=== PATIENT | male | born 1960 | race Caucasian/White ===

== ENCOUNTER → 2018-03-24 | Outpatient (CLI) | payer BC ==
[~2018-03-24] VITALS: Ht 177.8 cm; Wt 98.9 kg
[~2018-03-24] MED LIST: ALLEGRA ALLERG180 MG PO; BAYER CHEWABLE81 MG PO; CELEBREX 200 M200 M1 PO; DYMISTA NASAL S23 GM NASAL; FLOMAX0.4 MG PO; GABAPENTIN 100100 MG PO; HYDROCODON-ACE1 EAC7 PO; LIORESAL 10 MG10 MG PO; MELATONIN5 M1 PO; NORCO 5-325 TA1 EACH PO; POTASSIUM99 MG PO; PRAVACHOL20 MG PO; PROTONIX40 M4 PO; TRAMADOL 50 MG50 MG PO; TRAZODONE HCL50 MG PO; VITAMIN D1000 UNI1 PO
--- NOTE | ~2018-03-24 | H ---
[facility] [place] [address] [place] [address] HISTORY AND PHYSICAL Name: MARCE ORTEGA [facility] [id number] Admission: 03/24/18 Attend Phys: Roel Singer MD Discharge: Date of : 64 Report #: [id number] THIS REPORT FOR: //name// CC: [facility] physician/PCP Jason Singer DATE OF SERVICE: 03/24/2018 CHIEF COMPLAINT: Chronic low back pain with radiculopathy. 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 He has chronic back pain. His pain, however, does not keep him from playing golf up to sometimes 6 days a week. At the end of the day his back hurts. He has recently had an MRI showing tight spinal stenosis at L4-L5 as well as a lesser degree at L5-S1. The combination of facet arthropathy, thickening of the ligamentum flavum and bulging of disks at those levels creating these narrowings. Dr. Rizzo has suggested that surgery may be in his future. A 2-level laminectomy would possibly result in a fusion as well. He is here today for his treatment options. He has seen Dr. Desir at the pain clinic at [facility]. Epidural injections have not provided a lot of relief, but he recently underwent a 2-level transforaminal epidural injection at L5-S1 that he says provided improvement for several months. That last injection was performed in 06/2017. I cared for the patient's many years ago. She was in the pain clinic before receiving a lumbar fusion and has done well with a single level L4-L5 fusion. Her view on surgery is that it has potential in providing relief for her . We discussed the pros and cons of lumbar decompression with fusion today as well as conservative management including intermittent epidural injections and the use of medication. He has used opioid medication with some success at low dose. Hydrocodone works effectively in easing pain. He typically takes the hydrocodone before golf and sometimes after. He rarely uses more than 2 tablets a day. He also has used tramadol in the same fashion. He denies any significant side effects. He is at low risk for addiction. An opioid risk tool has been completed at today's visit. Score is low. His MME max is 10 MME. He describes his current pain as 2 years in the making, pain across his low back, pain typically in one or the other buttock, most recently has stayed primarily in the left. He has a tightness and cramps that occur in his calves often at night. If he is asad he can get his to massage the cramps which [facility] [address] [place] [address] HISTORY AND PHYSICAL Name: MARCE ORTEGA Room #: REG CLLisa Salamanca#: [id number] Admission: 03/24/18 Attend Phys: Roel Singer MD Discharge: Date of : 64 Report #: [id number] helps. He has some nerve pain radiating into the right great toe. In addition to medication, regular exercise on the golf course, and medication, he has been using for 5 minutes twice a day a new inversion table and doing daily stretching. Pain intensity is described somewhere between a 5 and a 7/10. He feels that the inversion table has helped. MEDICATIONS: Potassium, cholecalciferol, Protonix, aspirin, melatonin, trazodone, tramadol, Dymista, Diane, Lioresal, Pravachol, Flomax, Celebrex, [place] when he has it available and Neurontin 100 mg t.i.d. ALLERGIES: None. PAST MEDICAL HISTORY: Significant for elevated cholesterol, gastroesophageal reflux disease, and arthritis. SOCIAL HISTORY: Denies use of tobacco, drinks alcohol in a social setting. He exercises weekly. He is . PHYSICAL EXAMINATION: GENERAL: Pleasant 58-year-old. VITAL SIGNS: Blood pressure 116/84, heart rate 76, respirations 16. BMI is 31.3. NEUROLOGIC: Moves from sitting to standing position and ambulates with a steady gait. Range of motion of the lumbar spine is excellent in flexion, extension and rotational movements. There is some flattening of the lordotic curve and limited motion, flexion and extension of the spine. There is mild tenderness across the lumbosacral segment including the sacroiliac joints, but this is not significant. Straight leg raising is negative in the sitting position for radiculopathy. Sensation is intact. No focal weakness is noted. Deep tendon reflexes are trace at the knees, absent at the ankles. MRI scan is reviewed. I did not have the films to review, but clearly it appears that the biggest problem is the significant stenosis at L4-L5 and slightly lesser problem at L5-S1. The stenosis at L5-S1 is 0.7 cm, the stenosis at L4-L5 is 0.5. RECOMMENDATION: 1. I can repeat transforaminal epidural injections at L5-S1 if he would like me to do so or he can return to Dr. Desir at [facility]. 2. I provided him with some hydrocodone, particularly for his upcoming trip and some tramadol. 60 tablets of each. we had a long discussion today about the opioids in treatment of chronic intractable pain. I think they play a role. I have referred him to my website blog, which may help answer some questions that he had about my philosophy and the use of opioids for treatment of chronic [facility] [address] [place] [address] HISTORY AND PHYSICAL Name: MARCE ORTEGA Room #: REG [facility]..#: [id number] Admission: 03/24/18 Attend Phys: Roel Singer MD Discharge: Date of : 64 Report #: [id number] intractable pain. Surgery may be in his cards down the line, but that will be determined later. I have seen many patients in our practice with fairly tight spinal stenosis being able to manage effectively without surgery. I think there is also some hope in the future that we will continue to expand upon less invasive procedures than laminectomy and fusion. MILD and Vertiflex are two of the current treatments that have been used for Stenosis with mixed results. I suspect we will continue to see advancements in this area in the future. Followup visit is planned for 2-level transforaminal epidural injection. I if think we can provide him with extended relief in the range of months, this would be a useful tool going forward to buy some time. How much is difficult to say. By: [id number] Roel Singer MD /nt
[2018-03-24 13:08] VITALS: BP 116/84
== END ==
LOC: PAIN 07:16
DX: M54.16 Radiculopathy, lumbar region (principal); G89.4 Chronic pain syndrome; Z79.899 Other long term (current) drug therapy

== ENCOUNTER → 2018-06-05 | Outpatient (CLI) | payer BC ==
[~2018-06-05] VITALS: Ht 177.8 cm; Wt 100.7 kg
[2018-06-05 12:48] VITALS: BP 116/94
--- NOTE | 2018-06-05 12:50 | NUR ---
Pain Clinic Assessment: 1. History of Osteoarthritis: Left Lower Extremity Right Lower Extremity L4-L5 S1 B/L KNEES History of Rheumatoid Arthritis: Not Applicable 2. Height: 5 ft. 10 in. 177.8 cm. Weight: 222.0 lb. oz. 100.699 kg. Patient's BMI: 31.9 3. Vital Signs: BP: 116/94 Pulse: 77 Resp: 16 Temp: 02 Sat: 99 ECG Mon: 4. Pain Intensity: 2 5. Fall Risk: Dizziness: N Needs help standing or walking: N Fallen in the last 3 months: N Fall risk comments: 6. Patient on Blood Thinner: None 7. History of Hypertension: N 8. Opioid Therapy greater than 6 weeks: Y Opiate Contract Signed: 9. Risk Assessment Tool Provided: 10. Functional Assessment Tool: 11. Recreational Drug Use: Never Drug Type: Tobacco Use: Never Smoker Tobacco Type: Amount or Packs/day: How Many Years: Alcohol Use: Yes Frequency: Quant:
--- NOTE | 2018-06-06 07:28 | HPC ---
[facility] [address] [address] [place] [address] PAIN MANAGEMENT CONSULTATION Name: JORDANMARCE ASTUDILLONE Room #: REG [facility] Cheikh#: [id number] Admission: 06/05/18 Attend Phys: Brook Galaviz Discharge: Date of : 64 Report #: [id number] THIS REPORT FOR: //name// CC: Brook Galaviz [facility] physician/PCP DATE OF SERVICE: 06/05/2018 CHIEF COMPLAINT: Low back pain with radiculopathy. HISTORY OF PRESENT ILLNESS: This is a pleasant 58-year-old gentleman who has a longstanding history of chronic back pain. He does complain of occasional leg pain, but today it is central low back pain. He tells me it is worse with activity, worse in the morning or before bedtime and playing golf. He does use his medication, he stretches and he uses an inversion table. He complains of a pain of 2/10, mostly a stiff soreness in his back. He tells me that he has also since our last visit started taking some baclofen and he takes gabapentin 100 mg at bedtime. These seem to both be very beneficial in helping with his pain in his lower back. He would like a refill of his tramadol today. He tells me that he has not been golfing very much, so therefore, he does not need to take the hydrocodone. He has only taken a couple of pills since Dr. Singer prescribed them in March for him. He thinks that he may be needing them more again once the weather is good and he is able to play golf again. ALLERGIES: No known drug allergies. CURRENT list of Baclofen 10 mg up to 3 times a day as needed, pravastatin 20 mg daily, Flomax 0.4 mg daily, Celebrex 200 mg daily, hydrocodone 5/325 as needed, gabapentin 100 mg daily, tramadol 50 mg twice a day, potassium daily, vitamin D daily, Protonix 40 mg daily, aspirin 81 mg daily, melatonin 5 mg at bedtime, trazodone 50 mg daily and Diane as needed. PQRS: 1. He has a history of lower extremity osteoarthritis and lower back. He denies any rheumatoid arthritis. 2. Height is 5 feet 10 inches, weight is 220, BMI is 31.9. 3. Vital signs: Blood pressure 116/94, pulse of 77, respirations 16, oxygen sat is 99. 4. Pain scores 2/10. 5. Fall risk. He denies dizziness. Does not need help walking or standing. Has not fallen in the last 3 months. 5. The patient is not on any blood thinners and does not take antihypertensive medicines. 6. He has history of opioid use greater than 6 weeks, therefore, he will sign an opioid contract today. 7. His risk assessment tool is low and his functional assessment is 27/70. [address] [address] PAIN MANAGEMENT CONSULTATION Name: MARCE ORTEGA [facility] [id number] Admission: 06/05/18 Attend Phys: Brook Galaviz Discharge: Date of : 64 Report #: [id number] 8. Recreational drug use he denies. He is not a smoker and occasionally drinks alcohol. We did check the prescription monitoring system. The patient is fairly appropriately for his medications from Dr. Roel Singer. He tells me he does safeguard his medications and keeps them with him when he travels. PHYSICAL EXAMINATION: GENERAL: This is a well-developed, well-nourished 58-year-old male that appears his stated age. He is alert and orientated. His affect is appropriate. HEENT: Normocephalic, atraumatic. Extraocular eye muscles are intact. Mucous membranes are moist. Hearing is adequate. NECK: Without JVD or adenopathy. MUSCULOSKELETAL: He moves from sitting to standing position and ambulates with a steady gait. Some mild tenderness across his lumbosacral segment including his SI joints. He does not complain of any radiculopathy today. Lower extremity muscle strength is judged to be 5/5 in all major muscle groups. IMPRESSION: 1. Chronic low back pain. 2. Lumbar radiculopathy. 3. Complex medical management under terms of written opioid agreement. We reviewed the fact that opiate medications are being used to provide analgesia adequate to support activities of daily living, not attempting to achieve a specific pain score on the 0-10 Visual Analog Scale. The current opiate medications are providing sufficient analgesia to allow the patient to participate in activities of daily living. The patient is not exhibiting any aberrant behavior suggestive of drug diversion. The patient is not having any adverse reactions to medications. The patient is not suffering from daytime somnolence or mental acuity changes. The patient is managing opiate-induced constipation with appropriate peqk-qez-oznofby agents and dietary considerations. The patient was counseled on concern for caution with operating a motor vehicle while using opiate medications. A physical exam was performed and the patient's functional status was evaluated. All patients with back pain were advised against the bed rest greater than 4 days and were advised to return to normal activities. Pain score assessment was noted and the treatment plan was reviewed with the patient. All current medications, both prescribed and OTC were reviewed and reconciled on the electronic medical record. Tobacco screening was accomplished and smoking cessation was advised when indicated. BMI was noted and diet/exercise modification was recommended for all patients following outside normal parameters. I reviewed with the patient today their responsibilities to safeguard prescription medications, reviewed their responsibility to utilize medications only as prescribed by the physician. They are to seek and receive pain [facility] [address] [place] [address] PAIN MANAGEMENT CONSULTATION Name: MARCE ORTEGA Room #: REG [facility] Yuly.Nic.#: [id number] Admission: 06/05/18 Attend Phys: Brook Galaviz Discharge: Date of : 64 Report #: [id number] medications only from 1 physician group ( [facility]). They are to use 1 pharmacy and keep the clinic informed if they change pharmacies. Their responsibilities include making followup visits in a timely fashion and to avoid abrupt discontinuation of medication usage. Their responsibilities further include bringing their medications (bottles from the pharmacy with residual pills) to the visit for possible confirmation of pill counts and the patient understands it is their responsibility to submit to random drug screens to ensure both that the medications prescribed are present, and that no other controlled substances are present. All prescriptions provided today were generated electronically. PLAN: 1. We discussed treatment options with the patient today. He would like a refill of his tramadol. He feels it has been very helpful taking 2 pills a day, 1 in the morning and 1 at night as instructed by Dr. Singer. He tells me that he has rarely been using hydrocodone since he has not been golfing this winter. The patient is requesting a 3-month mail off prescription for his tramadol. I told him at this time we have only seen him one time and I am not comfortable yet writing for a 3-month supply of medications, also I am not sure that [facility] will allow this medicine to be mailed. He is going to check with them because he is unsure. It is not common practice nowadays that 3 months of narcotic or nonnarcotic medications are mailed under an opioid crisis that we are having. The patient will check with [facility] and let us know for his next visit. Today tramadol 50 mg #60 with one additional refill were given. The patient verbalizes understanding. 2. The patient read and signed an opioid agreement today stating he understands the crack down on medications and that he will only get his narcotic prescriptions from us. According to the CDC guidelines, he is at 5-10 MMEs per day, which is very low under the CDC guidelines. Once we have established rapport with this patient, we will give him a 3-month supply of his medication to be filled locally. 3. The patient will be seen in 2 months' time prior to another cruise that he will be taking, he will call for an appointment prior to that time and we will see if he has been taking his hydrocodone more often and may need a refill of that prescription at that time too. The patient seen in collaboration today with Dr. Roel Singer. <ELECTRONICALLY SIGNED> By: Brook Galaviz 06/06/18 0728 [id number] Brook Galaviz /nt
== END ==
LOC: PAIN 07:14
DX: M54.16 Radiculopathy, lumbar region (principal); G89.29 Other chronic pain; Z79.891 Long term (current) use of opiate analgesic; Z79.899 Other long term (current) drug therapy

== ENCOUNTER → 2018-07-31 | Outpatient (CLI) | payer BC ==
[~2018-07-31] VITALS: Ht 177.8 cm; Wt 99.4 kg
[2018-07-31 09:33] VITALS: BP 125/88
--- NOTE | 2018-07-31 09:38 | NUR ---
Pain Clinic Assessment: 1. History of Osteoarthritis: Left Lower Extremity Right Lower Extremity L4-L5 S1 B/L KNEES History of Rheumatoid Arthritis: Not Applicable 2. Height: 5 ft. 10 in. 177.8 cm. Weight: 219.2 lb. oz. 99.429 kg. Patient's BMI: 31.5 3. Vital Signs: BP: 125/88 Pulse: 80 Resp: 18 Temp: 02 Sat: 97 ECG Mon: 4. Pain Intensity: 0 5. Fall Risk: Dizziness: N Needs help standing or walking: N Fallen in the last 3 months: N Fall risk comments: 6. Patient on Blood Thinner: None 7. History of Hypertension: N 8. Opioid Therapy greater than 6 weeks: Y Opiate Contract Signed: 06/05/18 9. Risk Assessment Tool Provided: 10. Functional Assessment Tool: 11. Recreational Drug Use: Never Drug Type: Tobacco Use: Never Smoker Tobacco Type: Amount or Packs/day: How Many Years: Alcohol Use: Yes Frequency: Quant:
--- NOTE | 2018-08-01 07:52 | HPC ---
[facility] [place] [place] [address] PAIN MANAGEMENT CONSULTATION Name: MARCE ORTEGA [facility] [id number] Admission: 07/31/18 ������������������ Attend Phys: Brook Galaviz Discharge: ������������������ Date of : 64 Report #: [id number] THIS REPORT FOR: //name// CC: Brook Galaviz [facility] physician/PCP DATE OF SERVICE: 07/31/2018 CHIEF COMPLAINT: Low back pain with radiculopathy. HISTORY OF PRESENT ILLNESS: This is a very pleasant 58-year-old gentleman who returns to the pain clinic today for refill of his medications for his chronic low back pain. He tells me that his pain score is 0 today. He takes tramadol twice a day and his Celebrex daily and this reduces his pain to the 0 score. He tells me that he did have to go off his Celebrex for a few days and he did notice an increase in his pain, especially in his knees when he was not taking that medication. He tells me he has not really started playing golf yet because of the bad winter. He thinks about another month he will start playing that, which usually increases his pain across his lower back. He does take the hydrocodone for that on a p.r.n. basis. The patient tells me that he is using the elliptical 4-5 times a week, trying to be as active as possible. He denies any constipation. He tells me he is getting ready to go on a cruise and he knows that he will safeguard his medicines and keep them with him when he is traveling. The patient would like a refill of his tramadol today, called into his [facility]. ALLERGIES: No known drug allergies. CURRENT LIST OF MEDICATIONS: Tramadol 50 mg b.i.d., hydrocodone 5/325 p.r.n., potassium daily, vitamin D 1000 units daily, Protonix 40 mg daily, aspirin 81 mg daily, melatonin 5-10 mg at bedtime, trazodone 50 mg daily, Diane 180 mg daily, baclofen 10 mg t.i.d. p.r.n., Pravachol 20 mg daily, Flomax 0.4 mg daily, Celebrex 200 mg daily, Neurontin 100 mg at bedtime. PQRS: 1. He has a history of lower extremity osteoarthritis in his lower back. He denies any rheumatoid arthritis. 2. Height is 5 feet 10 inches, weight 219, BMI is 31. 3. VITAL SIGNS: Blood pressure 125/88, pulse is 80, respirations 18, oxygen sat is 97. Pain score is 0. 4. Fall risk: He denies any dizziness. Does not need help walking or standing, has not fallen in the last 3 months. 5. The patient is not on any blood thinners and does take medicine for hypertension. 6. Opioid therapy is greater than 6 weeks, therefore, an opiates signed contract is on the chart. [address] [address] PAIN MANAGEMENT CONSULTATION Name: MARCE ORTEGA SIA Room #: REG LUIS Salamanca#: [id number] Admission: 07/31/18 ������������������ Attend Phys: Brook Galaviz Discharge: ������������������ Date of : 64 Report #: [id number] 7. Risk assessment tool is low. His functional assessment is 27/70. 8. Recreational drug use, he denies. He is not a smoker and occasionally he drinks alcohol. PHYSICAL EXAMINATION: GENERAL: This is a well-developed, well-nourished, well-hydrated 58-year-old gentleman who appears his stated age. Placing his pain score today as 0/10. HEENT: Normocephalic, atraumatic. Extraocular eye muscles are intact. Mucous membranes are moist. NECK: Without JVD or adenopathy. MUSCULOSKELETAL: The patient moves from sitting to standing without any difficulty. He ambulates with a normal steady gait. Does not complain of any radicular pains today. Lower extremity strength judged to be 5/5 in all major muscle groups. ASSESSMENT: 1. Chronic low back pain. 2. Lumbar radiculopathy. 3. Complex medical management, in terms of written opioid agreement. We reviewed the fact that opiate medications are being used to provide analgesia adequate to support activities of daily living, not attempting to achieve a specific pain score on the 0-10 Visual Analog Scale. The current opiate medications are providing sufficient analgesia to allow the patient to participate in activities of daily living. The patient is not exhibiting any aberrant behavior suggestive of drug diversion. The patient is not having any adverse reactions to medications. The patient is not suffering from daytime somnolence or mental acuity changes. The patient is managing opiate-induced constipation with appropriate rzus-ajl-abfloam agents and dietary considerations. The patient was counseled on concern for caution with operating a motor vehicle while using opiate medications. A physical exam was performed and the patient's functional status was evaluated. All patients with back pain were advised against the bed rest greater than 4 days and were advised to return to normal activities. Pain score assessment was noted and the treatment plan was reviewed with the patient. All current medications, both prescribed and OTC were reviewed and reconciled on the electronic medical record. Tobacco screening was accomplished and smoking cessation was advised when indicated. BMI was noted and diet/exercise modification was recommended for all patients following outside normal parameters. I reviewed with the patient today their responsibilities to safeguard prescription medications, reviewed their responsibility to utilize medications only as prescribed by the physician. They are to seek and receive pain medications only from 1 physician group ( [facility]). They are to use [address] [address] PAIN MANAGEMENT CONSULTATION Name: MARCE ORTEGA Room #: REG LUIS Salamanca#: [id number] Admission: 07/31/18 ������������������ Attend Phys: Brook Galaviz Discharge: ������������������ Date of : 64 Report #: [id number] pharmacy and keep the clinic informed if they change pharmacies. Their responsibilities include making followup visits in a timely fashion and to avoid abrupt discontinuation of medication usage. Their responsibilities further include bringing their medications (bottles from the pharmacy with residual pills) to the visit for possible confirmation of pill counts and the patient understands it is their responsibility to submit to random drug screens to ensure both that the medications prescribed are present, and that no other controlled substances are present. All prescriptions provided today were generated electronically. PLAN: 1. We discussed treatment options with the patient today, the patient would like a refill of his tramadol. We did check the [employer], prescription monitoring system. The patient is filling appropriately with his medications from Dr. Singer and no other physicians. He does tell me he safeguards his medicine and keeps them locked up at home as well as when he travels. The tramadol he takes 2 times a day and would like a refill of this. We are able to do a 90-day, 3-month mail in prescription through [facility] for him, so we will call that medicine in today, for #180 with no additional refills. 2. The patient tells me that he does take his hydrocodone very sparingly. He still has medications left from his March prescription. We will give him a prescription today of hydrocodone 5/325, #60 that he will use sparingly over the next few months for when he has increased activity, especially when he plays golf. 3. The patient tells me he does take Celebrex and gabapentin that he also finds very helpful from his primary doctor, Dr. Puente. 4. The patient will make an appointment in 3 months' time. The patient seen today in collaboration with Dr. Roel Singer. ��������������������������������������������� <ELECTRONICALLY SIGNED> ���������������������������������������� By: Brook Galaviz ��������������������������������������������� 08/01/18 0752 [id number] Brook Galaviz /nt
== END ==
LOC: PAIN 06:43
DX: M54.16 Radiculopathy, lumbar region (principal); G89.29 Other chronic pain; Z79.899 Other long term (current) drug therapy

== ENCOUNTER → 2018-09-29 | Outpatient (CLI) | payer BC ==
[~2018-09-29] VITALS: Ht 177.8 cm; Wt 98.4 kg
[2018-09-29 09:49] VITALS: BP 122/88
--- NOTE | 2018-09-29 10:04 | NUR ---
Pain Clinic Assessment: 1. History of Osteoarthritis: Left Lower Extremity Right Lower Extremity L4-L5 S1 B/L KNEES History of Rheumatoid Arthritis: Not Applicable 2. Height: 5 ft. 10 in. 177.8 cm. Weight: 217.0 lb. oz. 98.431 kg. Patient's BMI: 31.1 3. Vital Signs: BP: 122/88 Pulse: 79 Resp: 16 Temp: 02 Sat: 98 ECG Mon: 4. Pain Intensity: 2 5. Fall Risk: Dizziness: N Needs help standing or walking: N Fallen in the last 3 months: N Fall risk comments: 6. Patient on Blood Thinner: None 7. History of Hypertension: N 8. Opioid Therapy greater than 6 weeks: Y Opiate Contract Signed: 06/05/18 9. Risk Assessment Tool Provided: 0-LOW RISK 10. Functional Assessment Tool: 11. Recreational Drug Use: Never Drug Type: Tobacco Use: Never Smoker Tobacco Type: Amount or Packs/day: How Many Years: Alcohol Use: Yes Frequency: Quant:
--- NOTE | 2018-09-30 08:39 | HPC ---
[facility] [place] [place] [address] PAIN MANAGEMENT CONSULTATION Name: MARCE ORTEGA Room #: REG [facility] Cheikh#: [id number] Admission: 09/29/18 ������������������ Attend Phys: Brook Galaviz Discharge: ������������������ Date of : 64 Report #: [id number] THIS REPORT FOR: //name// CC: Brook Galaviz [facility] physician/PCP DATE OF SERVICE: 09/29/2018 CHIEF COMPLAINT: Low back pain with radiculopathy. HISTORY OF PRESENT ILLNESS: This is a very pleasant gentleman of 58 years old, who returns to the Pain Clinic today for refill of his medications for his chronic ongoing low back pain. He tells me that his pain score is a 2/10 today, mostly a sore, stiffness, achy feeling, worse with activity, but his medications and stretching are helpful. He denies any problems with constipation. He tells me that he feels like he is doing better since he had lost some weight since last fall. He feels like he is stable with his tramadol dose and occasional hydrocodone before he golfs. The patient tells me he did see Dr. Rizzo a while ago and then did see another neurosurgeon through the [facility] system, Dr. Mejia for a second opinion that his primary care doctor had sent him to, feels like both the doctors believe that he does not need surgery at this time and to prolong it if he is able. The patient thinks that he is doing quite well with the current regimen and is going to try and hold off if he can. He tells me he is going to [place] in 2 weeks. He is wanting a refill of his hydrocodone prior to that just in case his back does flare when he is there. He is not needing any tramadol at this time. ALLERGIES: No known drug allergies. CURRENT LIST OF MEDICATIONS: Tramadol 50 mg b.i.d., hydrocodone 5/325 p.r.n., potassium, vitamin D, Protonix 40 mg daily, aspirin, melatonin, trazodone 50 mg at night, baclofen 10 mg p.r.n., pravastatin 20 mg daily, Flomax 0.4 at bedtime, Celebrex 200 mg daily and gabapentin 100 mg at bedtime. PQRS: 1. The patient has a history of lower extremity osteoarthritis and also in his lower back. He denies any rheumatoid arthritis. 2. Height is 5 feet 10 inches, weight is 217, BMI is 31. Vital signs 122/88, pulse 79, respirations 16, oxygen sat is 98. 3. Pain score is 2/10. 4. Fall risk. Denies dizziness. Does not need help walking or standing, has not fallen in the last 3 months. 5. The patient is not on any blood thinners and does [place] [address] PAIN MANAGEMENT CONSULTATION Name: MARCE ORTEGA Room #: REG [facility] Salamanca#: [id number] Admission: 09/29/18 ������������������ Attend Phys: Brook Galaviz Discharge: ������������������ Date of : 64 Report #: [id number] 6. Opiate therapy is greater than 6 weeks. Therefore, an opioid signed contract is on the chart. His risk assessment tool is low. His functional assessment is 27/70. 7. Recreational drug use, he denies. He is not a smoker and occasionally, he does drink alcohol. We did check the prescription monitoring system. The patient is filling appropriately for his medication and is not due for his tramadol today, just needing hydrocodone. PHYSICAL EXAMINATION: GENERAL: This is a well-developed, well-nourished, well-hydrated 58-year-old gentleman, who appears his stated age, placing his pain score today at 2/10. HEENT: Normocephalic, atraumatic. Extraocular eye muscles are intact. Mucous membranes are moist. NECK: Without JVD or adenopathy. EXTREMITIES: Moves from sitting to standing without difficulty. He has a normal steady gait. He has pain across his lower lumbar region with no radicular symptoms today. The patient's lower extremity strength judged to be 5/5 in all major muscle groups. ASSESSMENT: 1. Chronic low back pain. 2. Lumbar radiculopathy, though not an issue today. 3. Complex medical management under terms of written opioid agreement. We reviewed the fact that opiate medications are being used to provide analgesia adequate to support activities of daily living, not attempting to achieve a specific pain score on the 0-10 Visual Analog Scale. The current opiate medications are providing sufficient analgesia to allow the patient to participate in activities of daily living. The patient is not exhibiting any aberrant behavior suggestive of drug diversion. The patient is not having any adverse reactions to medications. The patient is not suffering from daytime somnolence or mental acuity changes. The patient is managing opiate-induced constipation with appropriate [id number] agents and dietary considerations. The patient was counseled on concern for caution with operating a motor vehicle while using opiate medications. A physical exam was performed and the patient's functional status was evaluated. All patients with back pain were advised against the bed rest greater than 4 days and were advised to return to normal activities. Pain score assessment was noted and the treatment plan was reviewed with the patient. All current medications, both prescribed and OTC were reviewed and reconciled on the electronic medical record. Tobacco screening was accomplished and smoking cessation was advised when indicated. BMI was noted and diet/exercise modification was recommended for all patients following outside normal [facility] [address] [place] [address] PAIN MANAGEMENT CONSULTATION Name: MARCE ORTEGA Room #: REG [facility]..#: [id number] Admission: 09/29/18 ������������������ Attend Phys: Brook Galaviz Discharge: ������������������ Date of : 64 Report #: [id number] parameters. I reviewed with the patient today their responsibilities to safeguard prescription medications, reviewed their responsibility to utilize medications only as prescribed by the physician. They are to seek and receive pain medications only from 1 physician group ( [facility]). They are to use 1 pharmacy and keep the clinic informed if they change pharmacies. Their responsibilities include making followup visits in a timely fashion and to avoid abrupt discontinuation of medication usage. Their responsibilities further include bringing their medications (bottles from the pharmacy with residual pills) to the visit for possible confirmation of pill counts and the patient understands it is their responsibility to submit to random drug screens to ensure both that the medications prescribed are present, and that no other controlled substances are present. All prescriptions provided today were generated electronically. PLAN: 1. We discussed treatment options with the patient today. The patient is needing a refill of his hydrocodone, which he takes very sparingly for his increased pain 5/325, #60 given with no additional refills. 2. The patient does not need any tramadol today. He still has one month left of his 3-month supply plus another refill. He is not needing that prescription and will make an appointment again in 3 months for medication refills. 3. The patient tells me he is taking Neurontin 100 mg at bedtime. He thinks it is beneficial, but unsure. I told him that he could always try to stop it because he is at a very low dose of 100 at night. If he has symptoms in his leg that does return, then he would restart the medications. The patient is agreeable with that and he said right now, he will keep as he is with his current medication regimen, but he may try that over the next few months. 4. The patient is getting ready to go to [place]. We did talk about safeguarding his medications, keeping them with him at all times on the plane, keeping them locked up when he is not in his hotel room. 5. Dr. Roel Singer did see the patient and collaborated care as well. ��������������������������������������������� <ELECTRONICALLY SIGNED> ���������������������������������������� By: Brook Galaviz ��������������������������������������������� 09/30/18 0839 1101 1911 Brook Galaviz /sandra
== END ==
LOC: PAIN 06:42
DX: G89.29 Other chronic pain (principal); M47.26 Other spondylosis with radiculopathy, lumbar region; Z79.899 Other long term (current) drug therapy; Z79.891 Long term (current) use of opiate analgesic

== ENCOUNTER → 2018-11-03 | Outpatient (CLI) | payer BC ==
[~2018-11-03] VITALS: Ht 177.8 cm; Wt 99.2 kg
[2018-11-03 09:54] VITALS: BP 108/87
--- NOTE | 2018-11-03 10:07 | NUR ---
Pain Clinic Assessment: 1. History of Osteoarthritis: Left Lower Extremity Right Lower Extremity L4-L5 S1 B/L KNEES History of Rheumatoid Arthritis: Not Applicable 2. Height: 5 ft. 10 in. 177.8 cm. Weight: 218.6 lb. oz. 99.156 kg. Patient's BMI: 31.4 3. Vital Signs: BP: 108/87 Pulse: 92 Resp: 14 Temp: 02 Sat: 97 ECG Mon: 4. Pain Intensity: 4 5. Fall Risk: Dizziness: N Needs help standing or walking: N Fallen in the last 3 months: N Fall risk comments: 6. Patient on Blood Thinner: None 7. History of Hypertension: N 8. Opioid Therapy greater than 6 weeks: Y Opiate Contract Signed: 06/05/18 9. Risk Assessment Tool Provided: 0-LOW RISK 10. Functional Assessment Tool: 11. Recreational Drug Use: Never Drug Type: Tobacco Use: Never Smoker Tobacco Type: Amount or Packs/day: How Many Years: Alcohol Use: Yes Frequency: Quant:
--- NOTE | 2018-11-11 17:25 | HPC ---
[facility] [place] [address] [place] [address] PAIN MANAGEMENT CONSULTATION Name: MARCE ORTEGA [id number] Admission: 11/03/18 ������������������ Attend Phys: Roel Singer MD Discharge: ������������������ Date of : 64 Report #: [id number] THIS REPORT FOR: //name// CC: Darling Singer DATE OF SERVICE: 11/03/2018 Followup visit for low back pain radiating down the posterior aspect of both legs. The patient returns to pain clinic today in followup to discuss his ongoing pain. I saw him actually as a second opinion to Dr. Desir in the past. At the request of his primary care physician, he has now seen another sandblaster paint sprayer, Dr. Jasson Pelletier at [facility]. He is here to discuss Dr. Pelletier's assessment and recommendations. He now has seen myself, Dr. Desir and Dr. Pelletier. Dr. Pelletier suggested facet treatments with medial branch nerve blocks followed by radiofrequency. I reviewed his condition today. He complains mostly of low back, but there is some radiating stiffness and soreness in the legs. This is often worse at night. When he awakens at night, he has cramping sensation in his legs. He is able to be fairly active and enjoys playing golf, but notices that after golf or during the walking that he has some claudication like symptoms. He remains fit and active and athletic. He played hockey as a youth and into his adulthood. He does a stretching regimen consistent with his athletic history. MEDICATIONS: Include hydrocodone 5/325, tramadol 50 mg p.r.n.; he takes no more than 1-2 of each of these medicines per day and finds them effective. Trazodone 50 mg at bedtime, baclofen a rare use for spasm or muscle cramps, Celebrex 200 mg daily, gabapentin 100 mg at bedtime, tamsulosin, fexofenadine, Dymista nasal spray, melatonin, aspirin, pantoprazole, cholecalciferol, potassium. ALLERGIES: None. PHYSICAL EXAMINATION: He is a very fit, stocky appearing gentleman who is 5 feet 10 inches, 218 pounds with a BMI of 31.4. He is muscular throughout. His blood pressure is 108/87, heart rate 92, respirations 14, O2 sat 97. He moves from sitting to standing position, ambulates with a stable broad-based gait. He has good muscle mass throughout the upper and lower extremities with no [address] [address] PAIN MANAGEMENT CONSULTATION Name: MARCE ORTEGA Room #: REG LUIS Salamanca#: [id number] Admission: 11/03/18 ������������������ Attend Phys: Roel Singer MD Discharge: ������������������ Date of : 64 Report #: [id number] tenderness. He has minimal discomfort across the low back. He has some pain with forward flexion and extension, rotational movements, but this is all mild. He has some pain that radiates into his left and right lower extremity down the L4-L5 distribution. He has pretty good movement of his spine in flexion, extension, rotation, and qnrd-gp-fgoz tilt without significant exacerbation to suggest that he has a significant amount of facet arthropathy. I reviewed his MRI from 01/21/2018. It shows that there is degenerative loss of disk height at L3-L4. The most notable finding; however, is moderate to severe degenerative loss of disk height and bulging into the canal at that level with thecal sac measured at 0.5 cm AP. He has a similar change at L5-S1 with the thecal sac at 0.7 cm AP. IMPRESSION: 1. Spinal stenosis with low back pain and some radiation consistent with radiculopathy. 2. Very mild symptoms suggestive of lumbar spondylosis and arthritis pain of the spine. PLAN: I do not think he is a great candidate for radiofrequency ablation given the fact that I think his pain generator is mostly the spinal stenotic segments of L4-L5 and L5-S1. Radiofrequency will not affect these. He may be a candidate for decompression procedure and we once again reviewed those that we did in his prior visit in March. We talked about exercise maybe an epidural steroid injection once again to see if we can provide relief using that approach. Multiple questions were asked and answered. CONSULTATION TIME: Qbcl-ek-mzxo 25-30 minutes. ��������������������������������������������� <ELECTRONICALLY SIGNED> ���������������������������������������� By: Roel Singer MD ��������������������������������������������� 11/11/18 1725 1558 51 Roel Singer MD /nt
== END ==
LOC: PAIN 06:45
DX: M48.061 Spinal stenosis, lumbar region without neurogenic claudication (principal); Z79.899 Other long term (current) drug therapy

== ENCOUNTER → 2018-11-24 | Outpatient (CLI) | payer BC ==
[~2018-11-24] VITALS: Ht 177.8 cm; Wt 98.4 kg
--- NOTE | ~2018-11-24 | HPC ---
[facility] [place] [address] [place] [address] PAIN MANAGEMENT CONSULTATION Name: MARCE ORTEGA Room #: REG [facility] Cheikh#: [id number] Admission: 11/24/18 ������������������ Attend Phys: Roel Singer MD Discharge: ������������������ Date of : 64 Report #: [id number] THIS REPORT FOR: //name// CC: Darling Singer DATE OF SERVICE: 11/24/2018 Followup visit for lumbar epidural injection. I saw the patient most recently on 11/03/2018. He is here today for bilateral transforaminal epidural injection at L4-L5. We reviewed his consultation from less than one month ago. He is here today with his . Multiple questions were asked and answered. We reviewed his 2018 MRI once again showing severe degenerative loss of disk height and bulging into the canal at the level of L3-L4 and a similar change at L5-S1 with narrowing of the thecal sac at 0.7 cm AP. Splitting this with a transforaminal epidural injection at L4-L5 seems appropriate. Questions were asked and answered. Procedure explained including risks and benefits. He is anxious to proceed. IMPRESSION: 1. Low back pain with radiculopathy. 2. Degenerative disk disease and spinal stenosis. 3. Lumbar spondylosis. PROCEDURE: Bilateral transforaminal epidural injection under fluoroscopic guidance, L4-L5. DESCRIPTION OF PROCEDURE: He was taken to the fluoroscopic suite, placed prone, skin prepped with ChloraPrep. Skin anesthetized first on the left at L4-L5. Using triplanar fluoroscopic views, I advanced the needle into the neural foramen. A 1 mL of Omnipaque was injected. Excellent spread of dye was seen along the nerve root and into the epidural space, was followed by 3 mL of 0.5% lidocaine mixed with 40 mg of triamcinolone. Needle was removed. C-arm was repositioned to the right and mirror image injection was performed using identical technique in the opposite. A good epidurogram was once again achieved with injection of Omnipaque and it was followed with 3 mL of 0.5% lidocaine mixed with 40 mg triamcinolone. He tolerated the procedure well and was observed in recovery room for 45 minutes and discharged. Followup visit planned in 1-2 months. ��������������������������������������������� ���������������������������������������� By: ��������������������������������������������� [id number] Roel Singer MD /nt
[2018-11-24 09:29] VITALS: BP 111/80
--- NOTE | 2018-11-24 09:48 | NUR ---
Pain Clinic Assessment: 1. History of Osteoarthritis: Left Lower Extremity Right Lower Extremity L4-L5 S1 B/L KNEES History of Rheumatoid Arthritis: Not Applicable 2. Height: 5 ft. 10 in. 177.8 cm. Weight: 217.0 lb. oz. 98.431 kg. Patient's BMI: 31.1 3. Vital Signs: BP: 111/80 Pulse: 76 Resp: 16 Temp: 02 Sat: 97 ECG Mon: 4. Pain Intensity: 4 5. Fall Risk: Dizziness: N Needs help standing or walking: N Fallen in the last 3 months: N Fall risk comments: 6. Patient on Blood Thinner: None 7. History of Hypertension: N 8. Opioid Therapy greater than 6 weeks: Y Opiate Contract Signed: 06/05/18 9. Risk Assessment Tool Provided: 0-LOW RISK 10. Functional Assessment Tool: 11. Recreational Drug Use: Never Drug Type: Tobacco Use: Never Smoker Tobacco Type: Amount or Packs/day: How Many Years: Alcohol Use: Yes Frequency: Quant:
== END | disposition home or self-care (01) ==
LOC: PAIN 09:09
DX: M51.16 Intervertebral disc disorders with radiculopathy, lumbar region (principal); M48.061 Spinal stenosis, lumbar region without neurogenic claudication; M47.26 Other spondylosis with radiculopathy, lumbar region; G89.29 Other chronic pain; Z79.82 Long term (current) use of aspirin; Z79.899 Other long term (current) drug therapy; Z79.891 Long term (current) use of opiate analgesic; Z98.890 Other specified postprocedural states

== ENCOUNTER → 2019-01-15 | Outpatient (CLI) | payer BC ==
[~2019-01-15] VITALS: Ht 177.8 cm; Wt 98.2 kg
[~2019-01-15] MED LIST changes: +CBD OIL
[2019-01-15 08:59] VITALS: BP 103/71
--- NOTE | 2019-01-15 09:19 | NUR ---
Pain Clinic Assessment: 1. History of Osteoarthritis: Left Lower Extremity Right Lower Extremity L4-L5 S1 B/L KNEES History of Rheumatoid Arthritis: Not Applicable 2. Height: 5 ft. 10 in. 177.8 cm. Weight: 216.4 lb. oz. 98.159 kg. Patient's BMI: 31.1 3. Vital Signs: BP: 103/71 Pulse: 78 Resp: 16 Temp: 02 Sat: 97 ECG Mon: 4. Pain Intensity: 1 5. Fall Risk: Dizziness: N Needs help standing or walking: N Fallen in the last 3 months: N Fall risk comments: 6. Patient on Blood Thinner: None 7. History of Hypertension: N 8. Opioid Therapy greater than 6 weeks: Y Opiate Contract Signed: 06/05/18 9. Risk Assessment Tool Provided: 0-LOW RISK 10. Functional Assessment Tool: 11. Recreational Drug Use: Never Drug Type: Tobacco Use: Never Smoker Tobacco Type: Amount or Packs/day: How Many Years: Alcohol Use: Yes Frequency: Quant:
--- NOTE | 2019-01-19 12:58 | HPC ---
[facility] [address] [address] PAIN MANAGEMENT CONSULTATION Name: JORDANMARCE ASTUDILLONE Room #: REG Lisa Salamanca#: [id number] Admission: 01/15/19 Attend Phys: Brook Galaviz Discharge: Date of : 64 Report #: [id number] THIS REPORT FOR: //name// CC: Brook Galaviz Darling Puente DATE OF SERVICE: 01/15/2019 CHIEF COMPLAINT: Low back pain with radiation down the posterior aspect of bilateral legs. HISTORY OF PRESENT ILLNESS: This is a very pleasant 59-year-old gentleman who returns to the pain clinic today for refill of his medications for his ongoing low back pain. He reports a pain score of 1/10 today, telling me that he has done quite well since Dr. Singer gave him a bilateral transforaminal epidural steroid injection in November. He found that new approach very beneficial and is only having occasional twinges in his lower back that does radiate into his right buttock and upper thighs. He thinks that he will possibly have another injection in a couple of months and would like to have that same approach. The patient tells me that he had gone on vacation. He had forgotten his tramadol and had started taking CBD oil. He had found that very beneficial and has been continued to take that 1-2 times a day. He has been ordering online and did do significant research into the type that he has been taking and does have clinical documentation of the benefits, and the actual strength with no THC in it and finds that he thinks it is helpful and has been able to not have any hydrocodone or playing golf and being active and is considering decreasing his tramadol to one a day if the CBD oil continues to work as well as it has been, but today he would like a refill of his tramadol since he has not started this weaning process. ALLERGIES: No known drug allergies. CURRENT LIST OF MEDICATIONS: CBD oil, tramadol 50 mg b.i.d., potassium 99 mg daily, vitamin D, Protonix, aspirin, melatonin, trazodone and Dymista nasal spray, Diane, baclofen p.r.n., Pravachol, Flomax, Celebrex and Neurontin. PATIENT'S PQRS: 1. He has osteoarthritis in his lower extremities and his lower back. Denies any rheumatoid arthritis. 2. Height is 5 feet 10 inches, weight is 216, BMI is 31. Vital signs, blood pressure 103/71, pulse is 78, respirations 16, oxygen sat is 97, pain score is 1/10. 3. Fall risk. Denies dizziness, does not need help walking or standing, has not fallen in the last 3 months. 4. The patient is not on any blood thinners and [place] [address] PAIN MANAGEMENT CONSULTATION Name: MARCE ORTEGA [id number] Admission: 01/15/19 Attend Phys: Brook Galaviz Discharge: Date of : 64 Report #: [id number] hypertension. 5. Opiate therapy is greater than 6 weeks; therefore, an opioid signed contract is on the chart. His risk assessment tool is low. Functional assessment is 27/70. 6. Recreational drug use, he denies. He is not a smoker and occasionally drinks alcohol. We did check the prescription monitoring system. The patient has filled his tramadol 3 months ago for his 3-month supply and hydrocodone in September with no other aberrant fills. PHYSICAL EXAMINATION: GENERAL: This is an alert and orientated 59-year-old very fit gentleman who appears his stated age, placing his current pain score 1/10 today. HEENT: Normocephalic, atraumatic. Extraocular eye muscles are intact. Mucous membranes are moist. MUSCULOSKELETAL: He moves from sitting to standing without any difficulty. He has good muscle mass throughout his upper and lower extremities with no deficits or tenderness. He has minimal discomfort in his lower back with some pain in flexion and extension. His pain radiates from his left and lower extremities down the L4-L5 dermatomal distribution. ASSESSMENT: 1. Low back pain with radiculopathy. 2. Degenerative disk disease with spinal stenosis. 3. Lumbar spondylosis. 4. Arthritis pain in the lumbar spine. We reviewed the fact that opiate medications are being used to provide analgesia adequate to support activities of daily living, not attempting to achieve a specific pain score on the 0-10 Visual Analog Scale. The current opiate medications are providing sufficient analgesia to allow the patient to participate in activities of daily living. The patient is not exhibiting any aberrant behavior suggestive of drug diversion. The patient is not having any adverse reactions to medications. The patient is not suffering from daytime somnolence or mental acuity changes. The patient is managing opiate-induced constipation with appropriate iyms-dal-kicprzu agents and dietary considerations. The patient was counseled on concern for caution with operating a motor vehicle while using opiate medications. A physical exam was performed and the patient's functional status was evaluated. All patients with back pain were advised against the bed rest greater than 4 days and were advised to return to normal activities. Pain score assessment was noted and the treatment plan was reviewed with the patient. All current medications, both prescribed and OTC were reviewed and reconciled on the electronic medical record. Tobacco screening was accomplished and smoking [facility] [address] [place] [address] PAIN MANAGEMENT CONSULTATION Name: MARCE ORTEGA Room #: REG [facility] M.R.#: [id number] Admission: 01/15/19 Attend Phys: Brook MANUEL Galaviz Discharge: Date of : 64 Report #: [id number] cessation was advised when indicated. BMI was noted and diet/exercise modification was recommended for all patients following outside normal parameters. I reviewed with the patient today their responsibilities to safeguard prescription medications, reviewed their responsibility to utilize medications only as prescribed by the physician. They are to seek and receive pain medications only from 1 physician group ( [facility]). They are to use 1 pharmacy and keep the clinic informed if they change pharmacies. Their responsibilities include making followup visits in a timely fashion and to avoid abrupt discontinuation of medication usage. Their responsibilities further include bringing their medications (bottles from the pharmacy with residual pills) to the visit for possible confirmation of pill counts and the patient understands it is their responsibility to submit to random drug screens to ensure both that the medications prescribed are present, and that no other controlled substances are present. All prescriptions provided today were generated electronically. PLAN: 1. We discussed treatment options with the patient today. The patient found the bilateral transforaminal epidurals very beneficial from Dr. Roel Singer. He has had those done 2-1/2 months ago. He feels that he continues to have benefit from these and will think about another injection later this year. 2. The patient started taking CBD oil, which he finds very beneficial, ordering it online. He continues to take this 2 times a day. 3. The patient is requesting a script for tramadol. Tramadol 50 mg, #180 with one additional refill for a total of 6-month supply will be called in to [facility]. The patient will continue this twice a day but may consider tapering this medicine if the CBD oil continues to be beneficial, he will attempt to do this in the next few months. 4. The patient continues to be active, playing golf. I encouraged this activity. He is doing quite well overall with his current regimen that we will continue. 5. The patient is seen in collaboration today with Dr. Roel Singer who did see the patient as well. <ELECTRONICALLY SIGNED> By: Brook Galaviz 01/19/19 [id number] 1435 Brook Galaviz /nt
== END ==
LOC: PAIN 06:46
DX: M54.16 Radiculopathy, lumbar region (principal); M47.816 Spondylosis without myelopathy or radiculopathy, lumbar region; M48.061 Spinal stenosis, lumbar region without neurogenic claudication; Z79.899 Other long term (current) drug therapy; Z88.8 Allergy status to other drugs, medicaments and biological substances

== ENCOUNTER → 2019-04-16 | Outpatient (CLI) | payer BC ==
[~2019-04-16] VITALS: Ht 175.3 cm; Wt 105.2 kg
[~2019-04-16] MED LIST changes: +ULTRAM PO
--- NOTE | ~2019-04-16 | HPC ---
[facility] [place] [address] PAIN MANAGEMENT CONSULTATION Name: MARCE ORTEGA Room #: REG [facility] Pat.#: [id number] Admission: 04/16/19 Attend Phys: Roel Singer MD Discharge: Date of : 64 Report #: [id number] THIS REPORT FOR: //name// CC: Darling Singer DATE OF SERVICE: 04/16/2019 Followup visit for lumbar radiculopathy. The patient returns to pain clinic today and would like bilateral transforaminal epidural injections. He has responded favorably to these injections in the past. He continues on long-acting tramadol once a day. It works well for him. He has also tried some CBD oil. Both seemed to be helpful in helping him manage his pain and keeping his pain under control during activities. MEDICATIONS: Tramadol, CBD oil, potassium, vitamin D, pantoprazole, aspirin, melatonin, trazodone, Astelin nasal spray, fexofenadine, baclofen p.r.n. spasm, pravastatin, tamsulosin, and Celebrex 200 mg daily. ALLERGIES: None. PHYSICAL EXAMINATION: GENERAL: He is fit and active 59-year-old. VITAL SIGNS: Blood pressure 110/82, heart rate 88, and respirations 16. He moves independently from sitting to standing position. His gait is nonantalgic. CHEST: Clear. CARDIAC: Rhythm is regular. MUSCULOSKELETAL: Examination of the spine reveals tenderness across the lumbosacral segment. He has pain only with back extension. This is mild. Straight leg raising is mildly positive with tightness in the hamstrings and gluteal muscles. Sensation is intact. No focal weakness. Deep tendon reflexes are trace, knees bilaterally and ankles bilaterally as well. IMPRESSION: Low back pain with radiculopathy. He has responded favorably to transforaminal epidural injections using a bilateral approach. PROCEDURE: Fluoroscopically guided bilateral transforaminal epidural injections, L4-L5. DESCRIPTION OF PROCEDURE: After informed consent, he was taken to the fluoroscopic suite, where he was placed in the prone position. Skin was prepped with ChloraPrep. Skin was anesthetized over the L4-L5 neural foramen, first on [address] [address] PAIN MANAGEMENT CONSULTATION Name: MARCE ORTEGA Room #: REG [facility].#: [id number] Admission: 04/16/19 Attend Phys: Roel Singer MD Discharge: Date of : 64 Report #: [id number] the left. Using the triplanar fluoroscopic views, I advanced the needle into the neural foramen. After a negative aspiration, I injected 0.25 mL of Omnipaque to demonstrate an epidurogram. It was then followed by 2 mL of 0.5% lidocaine mixed with 40 mg of triamcinolone. Needle was removed. The C-arm was moved to the right and a mirror image injection was performed. Skin again was anesthetized with 1% lidocaine. A 22-gauge Tuohy epidural needle was advanced into the neural foramen with triplanar fluoroscopic views. An epidurogram was achieved once again with Omnipaque and I injected 2 mL of 0.5% lidocaine mixed with 40 mg of triamcinolone on that side. Total of 80 mg of triamcinolone was utilized for the injection. There were no complications. He tolerated the procedure well. He was observed in recovery room for about 45 minutes and discharged with a pain score of 0. Follow up as needed. By: 1258 [id number] Roel Singer MD /nt
[2019-04-16 08:56] VITALS: BP 110/82
--- NOTE | 2019-04-16 09:05 | NUR ---
Pain Clinic Assessment: 1. History of Osteoarthritis: Left Lower Extremity Right Lower Extremity L4-L5 S1 B/L KNEES History of Rheumatoid Arthritis: Not Applicable 2. Height: 5 ft. 9 in. 175.3 cm. Weight: 231.9 lb. oz. 105.189 kg. Patient's BMI: 34.2 3. Vital Signs: BP: 110/82 Pulse: 88 Resp: 18 Temp: 02 Sat: 98 ECG Mon: 4. Pain Intensity: 5-6 5. Fall Risk: Dizziness: N Needs help standing or walking: N Fallen in the last 3 months: N Fall risk comments: 6. Patient on Blood Thinner: None 7. History of Hypertension: N 8. Opioid Therapy greater than 6 weeks: Y Opiate Contract Signed: 06/05/18 9. Risk Assessment Tool Provided: 0-LOW RISK 10. Functional Assessment Tool: 11. Recreational Drug Use: Never Drug Type: Tobacco Use: Never Smoker Tobacco Type: Amount or Packs/day: How Many Years: Alcohol Use: Yes Frequency: Daily Quant: 1-2 DAILY
== END | disposition home or self-care (01) ==
LOC: PAIN 06:47
DX: M54.16 Radiculopathy, lumbar region (principal); G89.29 Other chronic pain; M19.90 Unspecified osteoarthritis, unspecified site; Z98.890 Other specified postprocedural states; Z79.82 Long term (current) use of aspirin; Z79.899 Other long term (current) drug therapy

== ENCOUNTER → 2019-06-18 | Outpatient (CLI) | payer BC ==
[~2019-06-18] VITALS: Ht 175.3 cm; Wt 99.3 kg
[~2019-06-18] MED LIST changes: +RAYOS5 MG PO; +TRAMADOL HCL E100 M1 PO
[2019-06-18 09:19] VITALS: BP 120/87
--- NOTE | 2019-06-18 09:35 | NUR ---
Pain Clinic Assessment: 1. History of Osteoarthritis: Left Lower Extremity Right Lower Extremity L4-L5 S1 B/L KNEES History of Rheumatoid Arthritis: Not Applicable 2. Height: 5 ft. 9 in. 175.3 cm. Weight: 218.9 lb. oz. 99.293 kg. Patient's BMI: 32.3 3. Vital Signs: BP: 120/87 Pulse: 82 Resp: 14 Temp: 02 Sat: 97 ECG Mon: 4. Pain Intensity: 1 5. Fall Risk: Dizziness: N Needs help standing or walking: N Fallen in the last 3 months: N Fall risk comments: 6. Patient on Blood Thinner: None 7. History of Hypertension: N 8. Opioid Therapy greater than 6 weeks: Y Opiate Contract Signed: 06/05/18 9. Risk Assessment Tool Provided: 0-LOW RISK 10. Functional Assessment Tool: 11. Recreational Drug Use: Never Drug Type: Tobacco Use: Never Smoker Tobacco Type: Amount or Packs/day: How Many Years: Alcohol Use: Yes Frequency: Daily Quant: 1-2 DAY
--- NOTE | 2019-06-18 13:09 | HPC ---
[facility] [address] [place] [address] PAIN MANAGEMENT CONSULTATION Name: MARCE ORTEGA Room #: REG Lisa Salamanca#: [id number] Admission: 06/18/19 Attend Phys: Brook Galaviz Discharge: Date of : 64 Report #: [id number] THIS REPORT FOR: cc: Darling Puente MD,Darling Galaviz,Brook JACKSON ~ THIS REPORT FOR: //name// CC: Brook Puente DATE OF SERVICE: 06/18/2019 CHIEF COMPLAINT: Lumbar radiculopathy. HISTORY OF PRESENT ILLNESS: This is a pleasant 59-year-old gentleman who returns to the pain clinic today for refill of his medications. He reports that the bilateral transforaminal epidural injection that Dr. Roel Singer performed in April has been quite helpful. He feels like he had 100% relief and still continues to have relief from this injection. The patient reports that he did see Dr. Jason Rizzo for a yearly followup visit who started him on tramadol ER 100 mg, rotated him off his breakthrough tramadol 50 mg. The patient has found this very beneficial in controlling his pain and would like a refill of that medication today. The patient reports his pain is in his lower buttocks that does radiate to his knees, rating his pain score of 1/10 today. The majority of his pain is after he has exercised such as playing golf or first thing in the morning. He has noticed that while taking the extended release tramadol, he does not have as much pain in the morning as he did when he was taking the short-acting tramadol medications. He denies any problems with daytime sleepiness or constipation. ALLERGIES: No known drug allergies. CURRENT LIST OF MEDICATIONS: Juan J, Ultram ER 100 mg daily, tramadol p.r.n., CBD oil, potassium, vitamin D, Protonix, aspirin, melatonin, trazodone, Diane, Pravachol, Flomax, Celebrex and gabapentin. PQRS: 1. He has osteoarthritis in his upper and lower extremities as well as his spine. He denies any rheumatoid arthritis. 2. Height is 5 feet 9 inches, weight is 218, BMI is 32. 3. Vital signs 120/87, pulse is 82, respirations 14, oxygen sat is 97. 4. Pain score is 1/10. 5. Denies dizziness, does not need help walking or standing, has not fallen in the last 3 months. [facility] [address] [place] [address] PAIN MANAGEMENT CONSULTATION Name: MARCE ORTEGA Room #: REG [facility]#: [id number] Admission: 06/18/19 Attend Phys: Brook Galaviz Discharge: Date of : 64 Report #: [id number] 6. The patient is not on any blood thinners or medicine for hypertension. 7. Opiate therapy is greater than 6 weeks; therefore, an opioid signed contract is on the chart. Risk assessment tool is low. Functional assessment is 38/70. 8. Recreational drug use, he denies. He is not a smoker and drinks alcoholic beverages 1-2 drinks a day. According to the CDC guidelines, he filled his last tramadol ER prescription in February and is due for those to be filled today. According to the CDC guidelines, his morphine mEq per day is 10. PHYSICAL EXAMINATION: GENERAL: He is alert and orientated 59-year-old gentleman who appears his stated age, placing his current pain score of 1/10. HEENT: Normocephalic, atraumatic. Extraocular eye muscles are intact. Mucous membranes are moist. MUSCULOSKELETAL: He has a nonantalgic gait. He moves independently from sitting to standing position. He has tenderness across the lumbosacral segment of his spine. This increases with extension. His lower extremity strength judged to be 5/5 in all major muscle groups. He has sensation that is intact from L1 through S2. IMPRESSION: 1. Low back pain with radiculopathy. 2. Degenerative disk disease with spinal stenosis. 3. Lumbar spondylosis. 4. Osteoarthritis. PLAN: 1. We discussed treatment options with the patient today. The patient has found that extended release tramadol beneficial in controlling his pain. He would forget to take his nighttime tramadol short-acting medicines and wake up with increased pain. He finds that this does not happen when he is taking his long-acting medication. He is able to function well with minimal pain. We will refill his tramadol ER 100 mg, #90 pills will be sent to his [facility] pharmacy by Dr. Roel Singer today. 2. The patient does not need tramadol short-acting he has plenty at home for use if he is golfing or activities that do increase his pain. The patient does not take this short-acting medicine on a daily basis. 3. The patient is seen in collaboration with Dr. Roel Singer today. The patient will return in 3 months for a visit. <ELECTRONICALLY SIGNED> By: Brook Galaviz 06/18/19 1309 [id number] 1236 Brook Galaviz /nt
== END ==
LOC: PAIN 06:53
DX: M47.26 Other spondylosis with radiculopathy, lumbar region (principal); M48.061 Spinal stenosis, lumbar region without neurogenic claudication; M51.16 Intervertebral disc disorders with radiculopathy, lumbar region; Z79.899 Other long term (current) drug therapy; Z79.891 Long term (current) use of opiate analgesic

== ENCOUNTER → 2019-09-21 | Outpatient (CLI) | payer BC ==
[~2019-09-21] VITALS: Ht 175.3 cm; Wt 96.3 kg
[~2019-09-21] MED LIST changes: +LORCET 5-325 M1 EACH PO; +XYZAL5 MG PO
[2019-09-21 09:11] VITALS: BP 106/74
--- NOTE | 2019-09-21 09:32 | NUR ---
Pain Clinic Assessment: 1. History of Osteoarthritis: Left Lower Extremity Right Lower Extremity L4-L5 S1 B/L KNEES History of Rheumatoid Arthritis: Not Applicable 2. Height: 5 ft. 9 in. 175.3 cm. Weight: 212.2 lb. oz. 96.253 kg. Patient's BMI: 31.3 3. Vital Signs: BP: 106/74 Pulse: 87 Resp: 16 Temp: 02 Sat: 100 ECG Mon: 4. Pain Intensity: 4 5. Fall Risk: Dizziness: Y Needs help standing or walking: N Fallen in the last 3 months: N Fall risk comments: 6. Patient on Blood Thinner: None 7. History of Hypertension: N 8. Opioid Therapy greater than 6 weeks: Y Opiate Contract Signed: 06/05/18 9. Risk Assessment Tool Provided: 0-LOW RISK 10. Functional Assessment Tool: 11. Recreational Drug Use: Never Drug Type: Tobacco Use: Never Smoker Tobacco Type: Amount or Packs/day: How Many Years: Alcohol Use: Yes Frequency: Quant:
--- NOTE | 2019-09-22 09:59 | HPC ---
[facility] [place] [address] PAIN MANAGEMENT CONSULTATION Name: MARCE ORTEGA Room #: REG [facility] Pat.#: [id number] Admission: 09/21/19 Attend Phys: Brook Galaviz Discharge: Date of : 64 Report #: [id number] THIS REPORT FOR: cc: Darling Puente MD, Jennifer MD Hocker,Brook JACKSON ~ CC: Roel Singer MD DATE OF SERVICE: 09/21/2019 CHIEF COMPLAINT: Lumbar radiculopathy. HISTORY OF PRESENT ILLNESS: This is a very pleasant gentleman of 59 years old that is returning to the pain clinic for a refill of his tramadol that he takes to help relieve his ongoing low back pain that does radiate into his buttocks. He reports that his pain score is a 4/10 today. He feels that it is a soreness that comes and goes, also complaining of muscle tightness on the right lateral aspect of his back. He thinks that may be related to golf swing. He states that mornings are worse and to much activity, but as long as he stretches and takes his medication, he finds that his pain is well controlled. He also reports he has lost some weight and he feels that has aided in his decrease of his back pain. In April he weighed 231 and today he weighs 212. The patient also reports he had an issue with hives and was hospitalized at [facility]. 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 He has slowly returned to taking most of his medications. Throughout that time, he did continue his tramadol ER 100 mg. ALLERGIES: No known drug allergies. CURRENT LIST OF MEDICATIONS: Xyzal 5 mg, tramadol ER 100 mg daily, tramadol p.r.n., Dymista nasal spray, Pravachol, Flomax, and Celebrex. PQRS: 1. He has osteoarthritis in his lower extremities and knees. Denies any rheumatoid arthritis. 2. Height is 5 feet 9 inches, weight is 212, BMI is 31, this is down 19 pounds since April. 3. Vital signs 106/74, pulse is 87, respirations 16, and oxygen sat is 100. 4. Pain score is 4/10. 5. Complains of slight dizziness, does not need any help walking or has not fallen in the last 3 months. The patient is not on any blood thinners or medicine for hypertension. His opioid therapy is greater than 6 weeks; therefore, an opioid signed contract is on the chart. Risk assessment is low. Functional assessment is 38/70[place] [address] PAIN MANAGEMENT CONSULTATION Name: MARCE ORTEGA Room #: REG CL Cheikh#: [id number] Admission: 09/21/19 Attend Phys: Brook MANUEL Galaviz Discharge: Date of : 64 Report #: [id number] 6. Recreational drug use, he denies. He is not a smoker and occasionally drinks alcohol. According to the prescription monitoring system, the patient is filling appropriately. He received a 90-day prescription from his pharmacy and is due to have that filled this week. His morphine mEq is 10 MMEs per day. He is alert and orientated. PHYSICAL EXAMINATION: GENERAL: This is alert and orientated gentleman who appears his stated age, placing his current pain score at 4/10. HEENT: Normocephalic, atraumatic. Mucous membranes are moist. MUSCULOSKELETAL: He has tenderness in his lumbosacral region of his spine that does radiate into his buttocks bilaterally. He has muscle tightness on the right flank area. He walks with a nonantalgic gait. Moves independently from sitting to standing position. His upper and lower extremity strength judged to be 5/5 in all major muscle groups. IMPRESSION: 1. Low back pain with radiculopathy. 2. Degenerative disk disease with spinal stenosis. 3. Lumbar spondylosis. 4. Osteoarthritis. We reviewed the fact that opiate medications are being used to provide analgesia adequate to support activities of daily living, not attempting to achieve a specific pain score on the 0-10 Visual Analog Scale. The current opiate medications are providing sufficient analgesia to allow the patient to participate in activities of daily living. The patient is not exhibiting any aberrant behavior suggestive of drug diversion. The patient is not having any adverse reactions to medications. The patient is not suffering from daytime somnolence or mental acuity changes. The patient is managing opiate-induced constipation with appropriate gmyx-waf-pxhziaf agents and dietary considerations. The patient was counseled on concern for caution with operating a motor vehicle while using opiate medications. PLAN: 1. We discussed treatment options with the patient today. The patient feels that his pain has decreased some, though he still continues to find his pain medicines very beneficial. He has lost about 19 pounds per our records since April. He feels that this has aided in his decrease of back pain. He continues to be quite active, doing things around the house through this COVID pandemic outbreak keeping active as well as he has been able to play golf. Today, he would like a refill of his tramadol ER 100 mg sent to [facility], which we send these for [address] Roel Singer. The patient is not in need of his breakthrough pain medicine. He reports he is taken 3-[address] [facility] [address] [place] [address] PAIN MANAGEMENT CONSULTATION Name: MARCE ORTEGA Room #: REG CL Cheikh#: [id number] Admission: 09/21/19 Attend Phys: Brook Galaviz Discharge: Date of : 64 Report #: [id number] tablets since our last visit of his breakthrough medicine. The patient is seen in collaboration with Dr. Roel Singer today who did see him as well. The patient will return in 3 months. <ELECTRONICALLY SIGNED> By: Brook Galaviz 09/22/19 0959 [id number] Brook Galaviz /nt
== END ==
LOC: PAIN 06:50
DX: M47.26 Other spondylosis with radiculopathy, lumbar region (principal); M51.16 Intervertebral disc disorders with radiculopathy, lumbar region; M48.061 Spinal stenosis, lumbar region without neurogenic claudication; M19.90 Unspecified osteoarthritis, unspecified site; Z79.899 Other long term (current) drug therapy

== ENCOUNTER → 2019-12-28 | Outpatient (CLI) | payer BC ==
[~2019-12-28] VITALS: Ht 175.3 cm; Wt 97.3 kg
[2019-12-28 09:02] VITALS: BP 129/89
--- NOTE | 2019-12-28 09:08 | NUR ---
Pain Clinic Assessment: 1. History of Osteoarthritis: Left Lower Extremity Right Lower Extremity L4-L5 S1 B/L KNEES History of Rheumatoid Arthritis: Not Applicable 2. Height: 5 ft. 9 in. 175.3 cm. Weight: 214.6 lb. oz. 97.342 kg. Patient's BMI: 31.7 3. Vital Signs: BP: 129/89 Pulse: 68 Resp: 18 Temp: 02 Sat: 97 ECG Mon: 4. Pain Intensity: 3 5. Fall Risk: Dizziness: N Needs help standing or walking: N Fallen in the last 3 months: N Fall risk comments: 6. Patient on Blood Thinner: None 7. History of Hypertension: N 8. Opioid Therapy greater than 6 weeks: Y Opiate Contract Signed: 06/05/18 9. Risk Assessment Tool Provided: 0-LOW RISK 10. Functional Assessment Tool: 11. Recreational Drug Use: Never Drug Type: Tobacco Use: Never Smoker Tobacco Type: Amount or Packs/day: How Many Years: Alcohol Use: Yes Frequency: Quant:
--- NOTE | 2019-12-28 15:20 | HPC ---
[facility] [address] [place] [address] PAIN MANAGEMENT CONSULTATION Name: MARCE ORTEGA [facility] [id number] Admission: 12/28/19 Attend Phys: Brook Galaviz Discharge: Date of : 64 Report #: [id number] THIS REPORT FOR: cc: Darling Puente MD, Jennifer MD Hocker,Brook JACKSON ~ CC: Roel Singer MD DATE OF SERVICE: 12/28/2019 CHIEF COMPLAINT: Lumbar radiculopathy. HISTORY OF PRESENT ILLNESS: This is a very pleasant 59-year-old gentleman who appears his stated age, placing his pain score today at a 3/10. He believes that the Tramadol pain medication that we prescribed for him is very beneficial in reducing his low back pain as well as the pain that radiates into his buttock and knees. He feels that he is able to be as active as he was like, he does golf about 5 days a week and works in the yard. He feels that the medication enables him to be active. He has also lost significant weight since last year and feels that has improved his pain as well. The patient does report that he is getting a new sleep number bed in the next few weeks. He had slept on one in the past and thought it was very beneficial in helping with pressure points that he experiences in his low back that does occasionally wake him. He is looking forward to having this new bed and see if it is still beneficial. The patient does state that his pain is a tightness, numbness, achy feeling. He denies any overmedication feeling or constipation as a result of his medications. ALLERGIES: No known drug allergies. CURRENT LIST OF MEDICATIONS: Tramadol ER 100 mg daily, Xyzal, tramadol 50 mg p.r.n., aspirin, melatonin, trazodone, pravastatin, Flomax and Celebrex. PQRS: 1. He has a history of osteoarthritis in his lower extremities, knees and back. He denies any rheumatoid arthritis. 2. Height is 5 feet 9 inches, weight is 214, BMI is 31. 3. Vital signs 129/89, pulse is 68, respirations 18, oxygen sat is 97%. Pain score is 3/10. 4. Fall risk. Denies dizziness, does not need help walking or standing, has not fallen in the last 3 months. The patient denies any blood thinners or medicine for hypertension. 5. His opioid therapy is greater than 6 weeks; therefore, an opioid signed contract is on the chart. Risk assessment is low. Functional assessment is 38/70. 3. Recreational drug use, he denies. He is not a smoker and occasionally drinks alcohol. [address] [address] PAIN MANAGEMENT CONSULTATION Name: MARCE ORTEGANE [id number] Admission: 12/28/19 Attend Phys: Brook Galaviz Discharge: Date of : 64 Report #: [id number] According to the prescription monitoring system, the patient is due to fill his acting medications, filling them in a timely fashion. He does take a short-acting very sparingly. His morphine milliequivalent according to the CDC guidelines is about 10 MME per day. We will collect a random drug screen on this patient today as well. PHYSICAL EXAMINATION: GENERAL: This is alert and orientated, very pleasant 59-year-old gentleman who appears his stated age, placing his current pain score at 3/10. HEENT: Normocephalic, atraumatic. Extraocular eye muscles are intact. Sclerae are non-intrinsic. He is wearing a mask and glasses today. MUSCULOSKELETAL: He has tenderness in his lumbosacral region that radiates into his buttock to his knees following the L4-L5 dermatomal distribution. His upper and lower extremities strength is symmetrical at 5/5 with good sensation from L1-S2. He moves with a steady gait. IMPRESSION: 1. Lumbar radiculopathy. 2. Degenerative disk disease with spinal stenosis. 3. Lumbar spondylosis. 4. Osteoarthritis. 5. Opioid medication management under terms of written agreement. We reviewed the fact that opiate medications are being used to provide analgesia adequate to support activities of daily living, not attempting to achieve a specific pain score on the 0-10 Visual Analog Scale. The current opiate medications are providing sufficient analgesia to allow the patient to participate in activities of daily living. The patient is not exhibiting any aberrant behavior suggestive of drug diversion. The patient is not having any adverse reactions to medications. The patient is not suffering from daytime somnolence or mental acuity changes. The patient is managing opiate-induced constipation with appropriate opet-cmw-rwdpkbp agents and dietary considerations. The patient was counseled on concern for caution with operating a motor vehicle while using opiate medications. A physical exam was performed and the patient's functional status was evaluated. All patients with back pain were advised against the bed rest greater than 4 days and were advised to return to normal activities. Pain score assessment was noted and the treatment plan was reviewed with the patient. All current medications, both prescribed and OTC were reviewed and reconciled on the electronic medical record. Tobacco screening was accomplished and smoking cessation was advised when indicated. BMI was noted and diet/exercise modification was recommended for all patients following outside normal parameters. [place] [phone] PAIN MANAGEMENT CONSULTATION Name: MARCE ORTEGA Room #: REG [facility].#: [id number] Admission: 12/28/19 Attend Phys: Brook Galaviz Discharge: Date of : 64 Report #: [id number] I reviewed with the patient today their responsibilities to safeguard prescription medications, reviewed their responsibility to utilize medications only as prescribed by the physician. They are to seek and receive pain medications only from 1 physician group ( [facility]). They are to use 1 pharmacy and keep the clinic informed if they change pharmacies. Their responsibilities include making followup visits in a timely fashion and to avoid abrupt discontinuation of medication usage. Their responsibilities further include bringing their medications (bottles from the pharmacy with residual pills) to the visit for possible confirmation of pill counts and the patient understands it is their responsibility to submit to random drug screens to ensure both that the medications prescribed are present, and that no other controlled substances are present. All prescriptions provided today were generated electronically. PLAN: 1. We discussed treatment options with the patient today. He feels the Tramadol extended release is very beneficial and uses tramadol short acting on a very sparingly basis. We will have Dr. Roel Signer send these medications for him today electronically, 100 mg, #90, for a 3-month supply to his mail off pharmacy and 50 mg of tramadol, #180 with 1 refill. This script typically lasts him about a year due to his sparingly use. 2. The patient continues to deny any problems with constipation or other side effects. We will continue to see him on an every 3-month basis. 3. We will collect a random drug screen on this patient today. 4. The patient is seen in collaboration with Dr. Roel Singer. <ELECTRONICALLY SIGNED> By: Brook Galaviz 12/28/19 1520 [id number] 1238 Brook Galaviz /nt
== END ==
LOC: PAIN 06:56
PROVIDERS: ATTEND Clinical Nurse Specialist Adult Health
DX: M51.16 Intervertebral disc disorders with radiculopathy, lumbar region (principal); M48.061 Spinal stenosis, lumbar region without neurogenic claudication; M47.26 Other spondylosis with radiculopathy, lumbar region; M19.90 Unspecified osteoarthritis, unspecified site; Z79.891 Long term (current) use of opiate analgesic; Z79.899 Other long term (current) drug therapy; Z79.82 Long term (current) use of aspirin

== ENCOUNTER → 2020-03-03 | Outpatient (CLI) | payer BC ==
[~2020-03-03] VITALS: Ht 175.3 cm; Wt 98.0 kg
[2020-03-03 09:14] VITALS: BP 114/87
--- NOTE | 2020-03-03 09:49 | NUR ---
Pain Clinic Assessment: 1. History of Osteoarthritis: Left Lower Extremity Right Lower Extremity L4-L5 S1 B/L KNEES History of Rheumatoid Arthritis: Not Applicable 2. Height: 5 ft. 9 in. 175.3 cm. Weight: 216.0 lb. oz. 97.977 kg. Patient's BMI: 31.9 3. Vital Signs: BP: 114/87 Pulse: 79 Resp: 14 Temp: 02 Sat: 98 ECG Mon: 4. Pain Intensity: 3 5. Fall Risk: Dizziness: N Needs help standing or walking: N Fallen in the last 3 months: N Fall risk comments: 6. Patient on Blood Thinner: None 7. History of Hypertension: N 8. Opioid Therapy greater than 6 weeks: Y Opiate Contract Signed: 06/05/18 9. Risk Assessment Tool Provided: 0-LOW RISK 10. Functional Assessment Tool: 11. Recreational Drug Use: Never Drug Type: Tobacco Use: Never Smoker Tobacco Type: Amount or Packs/day: How Many Years: Alcohol Use: Yes Frequency: Daily Quant: 1
--- NOTE | 2020-03-14 09:11 | HPC ---
[facility] [address] [place] [address] PAIN MANAGEMENT CONSULTATION Name: MARCE ORTEGA Room #: REG [facility]..#: [id number] Admission: 03/03/20 Attend Phys: Roel Singer MD Discharge: Date of : 64 Report #: [id number] CC: CALEB Singer DATE OF SERVICE: 03/03/2020 The patient returns to pain clinic today with recurrence of his lumbar radicular symptoms. Typically it is bilateral; generally worse on the right, today is recurring mostly in the right, but a small amount of radicular symptom also into the left buttock once again. Pain is increased with activities. He enjoys golf and has played golf all summer long. He is grateful for the pain relief that provides him the ability to do this. His x-rays show marked degenerative disk at L4-L5 with spurring. A transforaminal approach has proved most effective and he would like to repeat the injection. Preauthorization will be required. He has tramadol extended release. He takes 1 tablet daily 100 mg and then uses tramadol 50 for breakthrough. Since his last injection, he has hardly had to use any breakthrough tramadol and is grateful for the ability to avoid additional pain medicine. PHYSICAL EXAMINATION: GENERAL: He is 5 feet 9 inches, 216 pounds, BMI of 31.9. VITAL SIGNS: Blood pressure 114/87, heart rate 79, respirations 14, O2 sat 98%. Pain intensity 3/10. MUSCULOSKELETAL: He has tenderness across the low back. He has straight leg raising bilaterally, worse on the right, follows an L4-L5 distribution. Strength is 5/5. Sensation is normal. IMPRESSION: Lumbar radiculopathy with degenerative disk disease, L4-L5 with spinal stenosis. Excellent response to transforaminal epidural injections, L4-L5 bilateral. He has had prior midline injections with a much lower response. RECOMMENDATIONS: We will repeat a transforaminal injection today under fluoroscopic guidance. We would repeat the injection today under fluoroscopic guidance, but his insurance will require preauthorization. We will send this off for review and see him back in the pain clinic for an injection next week. I see no reason why this very helpful procedure performed infrequently would be denied. <ELECTRONICALLY SIGNED> By: Roel Singer MD 03/14/20 0911 [id number] 1313 Roel Singer MD /nt
== END ==
LOC: PAIN 06:49
PROVIDERS: ATTEND Anesthesiology Pain Medicine
DX: M51.16 Intervertebral disc disorders with radiculopathy, lumbar region (principal); M48.061 Spinal stenosis, lumbar region without neurogenic claudication; Z79.891 Long term (current) use of opiate analgesic

== ENCOUNTER → 2020-03-07 | Outpatient (CLI) | payer BC ==
[~2020-03-07] VITALS: Ht 175.3 cm; Wt 99.8 kg
--- NOTE | ~2020-03-07 | HPC ---
[address] [place] [address] PAIN MANAGEMENT CONSULTATION Name: MARCE ORTEGA Room #: REG [facility] Stewart.#: [id number] Admission: 03/07/20 Attend Phys: Roel Singer MD Discharge: Date of : 64 Report #: [id number] CC: Darling Singer DATE OF SERVICE: 03/07/2020 Followup visit for bilateral lumbar radiculopathy. The patient returns to pain clinic today for the injections reviewed at his last visit. Preauthorization requirements have been met and he has been approved to go forward with the lumbar epidural injection using transforaminal approach. I reviewed the procedure with him, potential risks and benefits. The same injection performed a year ago, will be performed today at L4-L5. I have reviewed that films, so that we can mimic that injection as closely as possible given his outstanding response. I have also renewed his tramadol 100 mg once daily through the prescription drug monitoring program information sent through [employer]. IMPRESSION: Bilateral lumbar radiculopathy, chronic. PROCEDURE: L4-L5 transforaminal epidural injection under fluoroscopic guidance. After informed consent, he was taken to the fluoroscopic suite, placed prone, skin prepped with ChloraPrep. Skin anesthetized first on the left. A 22-gauge Tuohy epidural needle advanced into the neural foramen using triplanar fluoroscopic views. No blood, CSF or air was aspirated. A 1 mL of Omnipaque was injected and excellent spread of dye observed into the epidural space and also along the nerve root was followed by 2 mL of 0.5% lidocaine mixed with 40 mg of triamcinolone. Needle was removed. We then moved to the right and repeated the injection. Needle was advanced once again into the neural foramen on the right using triplanar fluoroscopic views and 1% lidocaine for local anesthesia. An excellent epidurogram achieved with ___ mL of Omnipaque and then again I followed with 2 mL of 0.5% lidocaine mixed with 40 mg of triamcinolone on the right. He tolerated the procedure well and was observed in recovery room for 45 minutes and discharged. Followup visit planned as needed. Three months for medication management. By: [id number] Roel Singer MD /nt
[2020-03-07 15:06] VITALS: BP 128/66
--- NOTE | 2020-03-07 15:08 | NUR ---
Pain Clinic Assessment: 1. History of Osteoarthritis: Left Lower Extremity Right Lower Extremity L4-L5 S1 B/L KNEES History of Rheumatoid Arthritis: Not Applicable 2. Height: 5 ft. 9 in. 175.3 cm. Weight: 220.0 lb. oz. 99.792 kg. Patient's BMI: 32.5 3. Vital Signs: BP: 128/66 Pulse: 110 Resp: 18 Temp: 02 Sat: 99 ECG Mon: 4. Pain Intensity: 3 5. Fall Risk: Dizziness: N Needs help standing or walking: N Fallen in the last 3 months: N Fall risk comments: 6. Patient on Blood Thinner: None 7. History of Hypertension: N 8. Opioid Therapy greater than 6 weeks: Y Opiate Contract Signed: 06/05/18 9. Risk Assessment Tool Provided: 0-LOW RISK 10. Functional Assessment Tool: 11. Recreational Drug Use: Never Drug Type: Tobacco Use: Never Smoker Tobacco Type: Amount or Packs/day: How Many Years: Alcohol Use: Yes Frequency: Quant:
== END | disposition home or self-care (01) ==
LOC: PAIN 06:58
PROVIDERS: ATTEND Anesthesiology Pain Medicine
DX: M54.16 Radiculopathy, lumbar region (principal); G89.29 Other chronic pain; Z98.890 Other specified postprocedural states; Z79.899 Other long term (current) drug therapy; Z79.82 Long term (current) use of aspirin

== ENCOUNTER → 2020-09-22 | Outpatient (CLI) | payer BC ==
[~2020-09-22] VITALS: Ht 172.7 cm; Wt 98.4 kg
[~2020-09-22] MED LIST changes: +MYRBETRIQ50 MG PO; +VITAMIN B12-FO1 EAC1 PO
[2020-09-22 09:48] VITALS: BP 134/89
--- NOTE | 2020-09-22 09:49 | NUR ---
Pain Clinic Assessment: 1. History of Osteoarthritis: Left Lower Extremity Right Lower Extremity L4-L5 S1 B/L KNEES History of Rheumatoid Arthritis: Not Applicable 2. Height: 5 ft. 8 in. 172.7 cm. Weight: 217.0 lb. oz. 98.431 kg. Patient's BMI: 33.0 3. Vital Signs: BP: 134/89 Pulse: 89 Resp: 14 Temp: 02 Sat: 98 ECG Mon: 4. Pain Intensity: 3 5. Fall Risk: Dizziness: N Needs help standing or walking: N Fallen in the last 3 months: N Fall risk comments: 6. Patient on Blood Thinner: None 7. History of Hypertension: N 8. Opioid Therapy greater than 6 weeks: Y Opiate Contract Signed: 06/05/18 9. Risk Assessment Tool Provided: 0-LOW RISK 10. Functional Assessment Tool: 11. Recreational Drug Use: Never Drug Type: Tobacco Use: Never Smoker Tobacco Type: Amount or Packs/day: How Many Years: Alcohol Use: Yes Frequency: Daily Quant: WINE
== END ==
LOC: PAIN 06:52
PROVIDERS: ATTEND Clinical Nurse Specialist Adult Health
DX: M47.26 Other spondylosis with radiculopathy, lumbar region (principal); M19.90 Unspecified osteoarthritis, unspecified site; M51.16 Intervertebral disc disorders with radiculopathy, lumbar region; F11.20 Opioid dependence, uncomplicated; Z88.8 Allergy status to other drugs, medicaments and biological substances; Z79.899 Other long term (current) drug therapy

== ENCOUNTER → 2020-10-24 | Outpatient (CLI) | payer BC ==
[~2020-10-24] VITALS: Ht 172.7 cm; Wt 98.8 kg
[2020-10-24 15:01] VITALS: BP 116/69
--- NOTE | 2020-10-24 15:22 | NUR ---
Pain Clinic Assessment: 1. History of Osteoarthritis: Left Lower Extremity Right Lower Extremity L4-L5 S1 B/L KNEES History of Rheumatoid Arthritis: Not Applicable 2. Height: 5 ft. 8 in. 172.7 cm. Weight: 217.8 lb. oz. 98.794 kg. Patient's BMI: 33.1 3. Vital Signs: BP: 116/69 Pulse: 106 Resp: 14 Temp: 02 Sat: 95 ECG Mon: 4. Pain Intensity: 4 5. Fall Risk: Dizziness: N Needs help standing or walking: N Fallen in the last 3 months: N Fall risk comments: 6. Patient on Blood Thinner: None 7. History of Hypertension: N 8. Opioid Therapy greater than 6 weeks: Y Opiate Contract Signed: 06/05/18 9. Risk Assessment Tool Provided: 0-LOW RISK 10. Functional Assessment Tool: 11. Recreational Drug Use: Never Drug Type: Tobacco Use: Never Smoker Tobacco Type: Amount or Packs/day: How Many Years: Alcohol Use: Yes Frequency: Daily Quant: 2
== END | disposition home or self-care (01) ==
LOC: PAIN 10:57
PROVIDERS: ATTEND Anesthesiology Pain Medicine
DX: M47.26 Other spondylosis with radiculopathy, lumbar region (principal); G89.29 Other chronic pain; M17.0 Bilateral primary osteoarthritis of knee; M19.90 Unspecified osteoarthritis, unspecified site; Z98.890 Other specified postprocedural states; Z79.899 Other long term (current) drug therapy

== ENCOUNTER → 2021-03-20 | Outpatient (CLI) | payer BC ==
[~2021-03-20] VITALS: Ht 175.3 cm; Wt 99.3 kg
[2021-03-20 09:16] VITALS: BP 153/99
--- NOTE | 2021-03-20 09:23 | NUR ---
Pain Clinic Assessment: 1. History of Osteoarthritis: Left Lower Extremity Right Lower Extremity L4-L5 S1 B/L KNEES History of Rheumatoid Arthritis: Not Applicable 2. Height: 5 ft. 9 in. 175.3 cm. Weight: 219.0 lb. oz. 99.338 kg. Patient's BMI: 32.3 3. Vital Signs: BP: 153/99 Pulse: 89 Resp: 16 Temp: 02 Sat: 98 ECG Mon: 4. Pain Intensity: 4/5 5. Fall Risk: Dizziness: N Needs help standing or walking: N Fallen in the last 3 months: N Fall risk comments: 6. Patient on Blood Thinner: None 7. History of Hypertension: N 8. Opioid Therapy greater than 6 weeks: Y Opiate Contract Signed: 06/05/18 9. Risk Assessment Tool Provided: 0-LOW RISK 10. Functional Assessment Tool: 11. Recreational Drug Use: Never Drug Type: Tobacco Use: Never Smoker Tobacco Type: Amount or Packs/day: How Many Years: Alcohol Use: Yes Frequency: Daily Quant:
== END ==
LOC: PAIN 03-18 08:40
PROVIDERS: ATTEND Clinical Nurse Specialist Adult Health
DX: M17.0 Bilateral primary osteoarthritis of knee (principal); M47.26 Other spondylosis with radiculopathy, lumbar region; G89.29 Other chronic pain; Z86.16 Personal history of COVID-19; Z88.8 Allergy status to other drugs, medicaments and biological substances; Z79.82 Long term (current) use of aspirin; Z79.899 Other long term (current) drug therapy

== ENCOUNTER → 2021-07-03 | Outpatient (CLI) | payer BC ==
[~2021-07-03] VITALS: Ht 177.8 cm; Wt 100.7 kg
[2021-07-03 09:18] VITALS: BP 134/91
--- NOTE | 2021-07-03 09:21 | NUR ---
Pain Clinic Assessment: 1. History of Osteoarthritis: Left Lower Extremity Right Lower Extremity L4-L5 S1 B/L KNEES History of Rheumatoid Arthritis: Not Applicable 2. Height: 5 ft. 10 in. 177.8 cm. Weight: 222.0 lb. oz. 100.699 kg. Patient's BMI: 31.9 3. Vital Signs: BP: 134/91 Pulse: 98 Resp: 16 Temp: 02 Sat: 95 ECG Mon: 4. Pain Intensity: 2-3 5. Fall Risk: Dizziness: N Needs help standing or walking: N Fallen in the last 3 months: N Fall risk comments: 6. Patient on Blood Thinner: None 7. History of Hypertension: N 8. Opioid Therapy greater than 6 weeks: Y Opiate Contract Signed: 06/05/18 9. Risk Assessment Tool Provided: 0-LOW RISK 10. Functional Assessment Tool: 11. Recreational Drug Use: Never Drug Type: Tobacco Use: Never Smoker Tobacco Type: Amount or Packs/day: How Many Years: Alcohol Use: Yes Frequency: Quant:
== END | disposition home or self-care (01) ==
LOC: PAIN 05-01 10:10
PROVIDERS: ATTEND Clinical Nurse Specialist Adult Health
DX: M54.16 Radiculopathy, lumbar region (principal); G89.29 Other chronic pain; M25.561 Pain in right knee; M25.562 Pain in left knee; M19.90 Unspecified osteoarthritis, unspecified site; M47.896 Other spondylosis, lumbar region; M54.59 Other low back pain; Z98.890 Other specified postprocedural states; Z79.899 Other long term (current) drug therapy; Z79.891 Long term (current) use of opiate analgesic; Z96.652 Presence of left artificial knee joint